=== PATIENT | male | born 1960 | race Caucasian/White ===

== ENCOUNTER 2019-05-13 10:30 | Outpatient (CLI) | payer OTHER, SELFPAY ==
--- NOTE | 2019-05-16 06:17 | SLEEP_ITS ---
Home Sleep Study DATE OF STUDY: 05/14/2019 HISTORY: The patient is 59 years of age. He has a BMI of 31.3 kg/m2. This patient had a prior sleep study almost 10 years ago documenting presence of obstructive sleep apnea. He was recommended to use CPAP therapy. The patient has been inconsistent and/or noncompliant with the use of CPAP. He did not have CPAP anymore as the insurance company declined further payment. The patient, however, has non-refreshing sleep and significant daytime hypersomnolence. He reports an [place] scale of 18/24 consistent with severe somnolence. The patient also has comorbid conditions of diabetes, hypertension, and hyperlipidemia. The patient underwent home sleep study using joiz ApneaLink Air device. Recordings were started at 12:08 a.m., ended at 7:40 a.m. The monitoring time was 6 hours and 16 minutes. RESPIRATORY EVENTS: The patient had 44 apneas with an apnea index of 6.1, obstructive event index was 1.2, central event index was 4.7, and mixed was 0.1. The patient also had 90 hypopneas with an index of 12.4. The respiratory events were more frequent in the supine sleep. The patient was in the supine sleep 75.4% of the time and during that time, the respiratory event index was 24.1 as compared to non-supine position, which was seen on 22.5% of the time. The event index was 0.6. PULSE RATE: The patient's average pulse rate was 75. The range was 65 to 103 beats per minute. OXYGEN SATURATION: The average saturation was 95%. Lowest saturation was 80%. In the last part of the study, generally in the early part of the morning, there appeared to be significant desaturation. This may suggest presence of REM related hypoxia. The patient was in supine sleep during that time. CONCLUSION: The study shows presence of at least moderate obstructive sleep apnea associated with episodes of desaturation. The patient also has moderate degree of central episodes. Given the patient's significant daytime symptomatology, particularly the daytime somnolence he is experiencing, it would be good idea to have this patient return for a full night CPAP titration study. The patient should also avoid driving or participate in any hazardous activity when sleepy. MATHIEU GONZALEZ MD BLOW MACHINE TENDER STARCH SPRAYING BLOW MACHINE TENDER STARCH SPRAYING D I MT: Edi
== END 2019-05-13 10:31 | disposition home or self-care (01) ==
PROVIDERS: PCP Family Medicine; Visit Provider Family Medicine
DX: G47.33 Obstructive sleep apnea (adult) (pediatric) (principal)
CPT/HCPCS: 95806

== ENCOUNTER 2019-10-02 09:40 | Outpatient (CLI) | payer OTHER, SELFPAY ==
[2019-10-02 09:50] LABS: Basophils Absolute Auto 0.04 K/mm3 (0.00-0.10); Basophils Percent Auto 0.6 % (0.0-1.0); Eosinophils Absolute Auto 0.22 K/mm3 (0.02-0.50); Eosinophils Percent Auto 3.5 % (1.0-6.0); Hematocrit 39.8 % (40.0-54.0); Hemoglobin 13.1 g/dL (14.0-18.0); Immature Granulocyte Absolute 0.02 K/mm3 (0.00-0.00); Immature Granulocyte Percent A 0.3 % (0.0-0.0); Lymphocytes Absolute Auto 1.85 K/mm3 (1.10-4.50); Lymphocytes Percent Auto 29.3 % (18.0-42.0); Mean Corpuscular HGB Conc 32.9 g/dL (32.0-36.0); Mean Corpuscular Hemoglobin 30.5 pg (27.0-31.0); Mean Corpuscular Volume 92.6 fL (78.0-102.0); Mean Platelet Volume 10.1 fl (8.7-11.0); Monocytes Absolute Auto 0.65 K/mm3 (0.10-0.90); Monocytes Percent Auto 10.3 % (2.0-11.0); Neutrophils Absolute Auto 3.5 K/mm3 (1.7-7.2); Platelet Count Result 247 K/mm3 (150-420); Red Cell Distribution Width 12.4 % (11.6-14.4); White Blood Count 6.3 K/mm3 (4.8-10.8)
[2019-10-02 10:00] LABS: Hemoglobin A1C 9.8 % (<5.7)
[2019-10-02 11:28] LABS: Alanine Aminotransferase 37 U/L (16-63); Alkaline Phosphatase 64 U/L (46-116); Anion Gap 13.2 mmol/L (7-16); Aspartate Amino Transferase 26 U/L (15-37); Bilirubin,Total 0.5 mg/dL (0.00-1.00); Blood Urea Nitrogen 16 mg/dL (7-18); Calcium 9.4 mg/dL (8.5-10.1); Carbon Dioxide 27 mmol/L (21-32); Chloride 102 mmol/L (98-108); Cholesterol 181 mg/dL (0-200); Estimated Glomerular Filt Rate > 60; Glucose 197 mg/dL (70-99); HDL Direct 50 mg/dL (40-60); LDL Cholesterol Calculated 84 mg/dL (<130); Osmolality Calculated 290 mOsm/kg (285-295); Potassium 5.2 mmol/L (3.5-5.1); Sodium 137 mmol/L (136-145); Total Protein 7.8 g/dL (6.4-8.2); Triglycerides 236 mg/dL (0-150)
[2019-10-02 11:31] LABS: Thyroid Stimulating Hormone Reflex 1.37 u/IU/mL (0.36-3.74)
== END 2019-10-02 09:41 | disposition home or self-care (01) ==
PROVIDERS: PCP Family Medicine; Visit Provider Family Medicine
DX: E11.9 Type 2 diabetes mellitus without complications (principal); I10 Essential (primary) hypertension
CPT/HCPCS: 36415; 80053; 80061; 83036; 84443; 85025

== ENCOUNTER → 2020-01-10 15:36 | Outpatient (CLI) | payer OTHER, SELFPAY ==
--- NOTE | ~2020-01-10 | MR_ITS ---
EXAMINATION: MR brain IAC wo/w con EXAM DATE: 01/10/2020 17:13 INDICATION: Study sudden onset hearing loss with headaches. TECHNIQUE: Multi-sequential, multiplanar MR images of the brain, brainstem, internal auditory canals were obtained without contrast. Whole brain sagittal T1, axial diffusion, gradient echo (T2*), T1, T 2, FLAIR sequences obtained. High resolution coronal 3-D FIESTA, coronal T1 FSE, axial T1 FSPGR of t he internal auditory canals. Patient was then injected with 19 cc Multihance contrast intravenously. Postcontrast axial and coronal T1 weighted whole brain, axial and coronal high resolution T1 IAC seq uences obtained. There is no prior study for comparison. FINDINGS: No evidence of mastoid or middle ear opacification. The 7th/8th cranial nerve complexes a re symmetric, normal in course and caliber. No cerebellopontine angle masses. Posterior fossa unrem arkable. There are no areas of restricted diffusion to suggest acute infarction. There is no acute hemorrhage seen on the T2*, a hemosiderin sensitive sequence. No intraparenchymal brain mass. The ventricles a re normal in size. There are no extra-axial collections. Flow voids are seen in the cerebral arteri es on the T2-weighted sequences consistent with their expected patency. The orbits are unremarkable. Soft tissue is unremarkable. There is mild paranasal sinus mucoperiosteal thickening IMPRESSION: 1. Unremarkable brain MRI examination. Reviewed, dictated and finalized at location A.
[2020-01-10 16:12] LABS: Estimated Glomerular Filt Rate > 60
== END ==
PROVIDERS: PCP Family Medicine; Visit Provider Otolaryngology
DX: H91.90 Unspecified hearing loss, unspecified ear (principal)
CPT/HCPCS: 70553; A9577

== ENCOUNTER 2020-02-01 01:44 | Outpatient (CLI) | payer OTHER, SELFPAY ==
[2020-02-01 22:13] LABS: SARS-CoV-2 RNA PCR Negative
== END 2020-02-01 01:45 | disposition home or self-care (01) ==
LOC: ANHCOVIDDT 01:45
PROVIDERS: Internal Medicine Critical Care Medicine; PCP Family Medicine; Visit Provider Internal Medicine Cardiovascular Disease
DX: Z01.812 Encounter for preprocedural laboratory examination (principal); Z20.828 Contact with and (suspected) exposure to other viral communicable diseases
CPT/HCPCS: 87635; C9803; U0003

== ENCOUNTER 2020-02-04 05:23 | Day surgery (SDC) | payer OTHER, SELFPAY ==
[2020-02-04] VITALS (31 sets, daily range): BP systolic 136–164; BP diastolic 77–101; PULSE 75–108; RESP 10–20; TEMP 36.2–37.2; O2SAT 94–100; BMI 30.6
--- NOTE | 2020-02-04 07:05 | SUR.PREOP ---
ARRIVES AMBULATORY TO [facility] W/ SIGNIFICANT OTHER AT SIDE FOR SCHEDULED C W/ DR. RENTERIA TODAY AT 0830. DENIES CP OR SOB ON ARRIVAL. GAIT STEADY. A&OX3. ORIENTED TO ROOM, PLAN OF CARE, PROCEDURE. QUESTIONS ANSWERED. OBTAINED COPIES OF LAB RESULTS FROM [facility] LAST WEEK. IV STARTED, VS OBTAINED, SKIN PREP COMPLETED, PULSES MARKED, CONSENT SIGNED. MONITOR SR. WILL MONITOR.
--- NOTE | 2020-02-04 08:17 | WPDMODSED ---
Moderate Sedation Note-Pt Data Patient Data Allergies Allergy/AdvReac Type Severity Reaction Status Date / Time No Known Allergies Allergy Mild Verified 12/25/19 17:44 Home Medications Medication Instructions Recorded Confirmed Type metoprolol tartrate 25 mg tablet 25 mg PO BID PRN #180 tablet 11/06/19 12/25/19 Rx dulaglutide 1.5 mg/0.5 mL 1.5 mg SUB-Q WEEKLY 90 Days #6.5 ml 12/26/19 Rx subcutaneous pen injector ezetimibe 10 mg-simvastatin 40 mg 1 tablet PO DAILY #90 tablet 12/26/19 Rx tablet lisinopril 20 mg tablet 20 mg PO DAILY #90 tablet 12/26/19 Rx metformin 1,000 mg tablet 1,000 mg PO BID #180 tablet 12/26/19 Rx sitagliptin 50 mg tablet 50 mg PO DAILY #90 tablet 12/26/19 Rx Current Medications: Active Medications Sodium Chloride (Normal Saline Iv) 500 mls @ 100 mls/hr IV CONT .Q5H SYL Sedation/Anesthesia: No previous sedation/anesthesia problems (including family history). [facility] Past Medical History Medical History DM2 (diabetes mellitus, type 2) Hyperlipidemia Hypertension Overweight Surgical History Surgical History History of hernia repair History of knee surgery History of shoulder surgery Family History Family History Mother Family history of type 2 diabetes mellitus Grandparent Colon cancer Father , Complication during heart valve replacement. No problems noted. Social History Social History Smoking status: Never smoker Tobacco type: cigarettes Mod Sed Physical Exam Physical Exam Pre Procedural Exam: Normal: Airway Hours since solid foods: 9 Hours since liquid intake: 9 Internal Medicine - PN: Obj Da Vital Signs Vital Signs: Vital Signs - 24 hr 02/04/20 07:34 Temperature 36.7 C Pulse Rate 86 Respiratory Rate 16 Blood Pressure 163/90 H Pulse Oximetry 97 Meds/Results Medications: Active Medications Generic Name Dose Route Start Last Admin Trade Name Freq PRN Reason Stop Dose Admin Sodium Chloride 500 mls @ 100 mls/hr 02/04/20 06:20 Normal Saline Iv IV CONT .Q5H [facility] ASA Classification/Sedation ASA Classification/Sedation Risks: Risks, benefits and alternatives explained and patient/family accepted plan for sedation. Patient re-evaluated immediately prior to sedation.
--- NOTE | 2020-02-04 08:18 | PM.IMHP ---
H&P: HPI History of Present Illness Date/Time: 02/04/20 08:18 Chief complaint: Abnormal Stress Test Narrative: Donte Gooden is a 59 year old male Hypertension, diabetes mellitus, dyslipidemia, ROCIO. Patient has been referred by Dr. Winter for coronary angiogram in the setting of chest discomfort and abnormal stress test. Patient has been experiencing generalized fatigue, lightheadedness. He also has occasional chest heaviness that happens with activity. He had a stress echocardiogram done on 01/15/2020. Baseline EKG was normal, exercise time 7.09 minutes, 10.1 Mets; exercise EKG consistent with ischemia; echocardiogram did not show wall motion abnormality. FOR[facility]LY [facility], [facility] Past Medical History Medical History (Updated 02/04/20 @ 08:21 by Babar Orosco MD) DM2 (diabetes mellitus, type 2) Hyperlipidemia Hypertension Overweight Surgical History Surgical History History of hernia repair History of knee surgery History of shoulder surgery Family History Family History Mother Family history of type 2 diabetes mellitus Grandparent Colon cancer Father , Complication during heart valve replacement. No problems noted. Social History Social History Smoking status: Never smoker Tobacco type: cigarettes Meds Home Medications and Allergies Home Medications Medication Instructions Recorded Confirmed Type metoprolol tartrate 25 mg tablet 25 mg PO BID PRN #180 tablet 11/06/19 12/25/19 Rx dulaglutide 1.5 mg/0.5 mL 1.5 mg SUB-Q WEEKLY 90 Days #6.5 ml 12/26/19 Rx subcutaneous pen injector ezetimibe 10 mg-simvastatin 40 mg 1 tablet PO DAILY #90 tablet 12/26/19 Rx tablet lisinopril 20 mg tablet 20 mg PO DAILY #90 tablet 12/26/19 Rx metformin 1,000 mg tablet 1,000 mg PO BID #180 tablet 12/26/19 Rx sitagliptin 50 mg tablet 50 mg PO DAILY #90 tablet 12/26/19 Rx Allergies Allergy/AdvReac Type Severity Reaction Status Date / Time No Known Allergies Allergy Mild Verified 12/25/19 17:44 Vital Signs Vital Signs - 24 hr 02/04/20 07:34 Temperature 36.7 C Pulse Rate 86 Respiratory Rate 16 Blood Pressure 163/90 H Pulse Oximetry 97 Exam Narrative: Exam Narrative: PHYSICAL EXAMINATION: GENERAL: Alert, oriented, no acute distress MENTAL STATUS: affect appropriate to mood EYES: Extraocular movements intact, no pallor EARS: External ears appear normal, hearing grossly normal NOSE: Normal and patent, no discharge MOUTH: Mucous membranes moist, tongue normal NECK: Supple, no JVD CHEST: Good respiratory effort, clear to auscultation HEART: Normal rate, regular rhythm, normal S1 and S2, no audible murmurs ABDOMEN: Soft, nontender NEUROLOGICAL: Alert, oriented, normal speech, no gross motor deficits MUSCULOSKELETAL: No major deformity, no amputation EXTREMITIES: No pedal edema, no clubbing, no cyanosis SKIN: no rash on the exposed area, no cyanosis PSYCHIATRIC: Normal mood, appropriate affect Assessment and Plan Assessment and plan (1) Chest pain: Code(s): R07.9 - Chest pain, unspecified Status: Acute Assessment and Plan: left heart catheterization plus minus intervention in the setting of chest pain and abnormal stress test.
--- NOTE | 2020-02-04 09:45 | SUR.PHASEII ---
BEGIN PHASE II RECOVERY AT THIS TIME. RETURNS TO [facility] 7 FROM CCL S/P LHC W/ PCI TO CIRC. 6FR SHEATH SUTURED INTO R. FEMORAL ARTERY PUNCTURE SITE. TO BLEEDING OR HEMATOMA TO SITE; R. GROIN SOFT, NONTENDER. DRESSING TO SITE C/D/I. ANGIOMAX GTT COMPLETE UPON RETURN AT 0945. SHEATH MAY BE PULLED AFTER 1145 THIS MORNING. R. PEDAL PULSE EASILY PALP. REPORTS SENSATION AND MOVEMENT R. FOOT WNL. VSS. IVF'S RUNNING ORDERED. REVIEWED BEDREST ACTIVITY RESTRICTIONS W/ PT AND S/O. WILL CONTINUE TO MONITOR CLOSELY.
--- NOTE | 2020-02-04 09:47 | WPDCARDPROC ---
Cardiac Cath Procedure Note Date of procedure:: 02/04/20 Performing physician:: Babar Orosco MD Procedure Procedure note:: CARDIAC CATHETERIZATION AND PERCUTANEOUS CORONARY INTERVENTION REPORT DATE OF PROCEDURE: 02/04/2020 INDICATION FOR PROCEDURE: Angina, abnormal stress test BRIEF CLINICAL HISTORY:59 year old male Hypertension, diabetes mellitus, dyslipidemia, ROCIO. Patient was referred by Dr. Winter for coronary angiogram in the setting of chest discomfort and abnormal stress test. Patient has been experiencing episodes of exertion chest discomfort, generalized fatigue, lightheadedness. He had a stress echocardiogram done on 01/15/2020. Baseline EKG was normal, exercise time 7.09 minutes, 10.1 Mets; exercise EKG consistent with ischemia; echocardiogram did not show wall motion abnormality. Benefits and risks of the procedure were discussed with the patient in depth, and informed consent was obtained prior to the procedure. Risks of the procedure include but are not limited to vascular complications including groin hematoma, retroperitoneal bleed, vessel perforation; periprocedural TN, cardiac arrhythmias, stroke, contrast induced nephropathy, and . After discussing all the benefits, risks and alternatives, patient was willing to proceed with the procedure. PROCEDURES PERFORMED: 1. Left heart catheterization- Selective left and right coronary angiogram; left ventriculogram and hemodynamic assessment 2. Percutaneous coronary intervention- a) balloon angioplasty and stenting of diffuse stenosis in the mid left circumflex using 2 everolimus eluting stents ( 3.25 x 33 mm, 3.25 x 12 mm) in an overlapping fashion; b) IFR of mid LAD 3. Moderate sedation-CPT code 36857 MODERATE SEDATION: Midazolam 1 mg; fentanyl 25 mcg. Start time 0829 , Stop time 0934 ; Total [id number] time 65 minutes; Elizabeth Brumfield RN was trained observer for moderate sedation. ACCESS SITE: Right common femoral artery PROCEDURE NOTE: After obtaining informed consent, patient was brought to catheterization lab and prepped and draped in a usual sterile manner. After local anesthesia with lidocaine, right common femoral artery access was taken with micropuncture needle followed by insertion of a 5 Panamanian sheath. Selective left and right coronary angiogram was performed using 5 Panamanian JL3.5 and JR4 catheters respectively. Orthogonal views were taken. Next, a 5 [place]amanian pigtail catheter was advanced in the LV cavity and was flushed with normal saline. LV pressure measurement was performed. After this, left ventriculogram was performed. The catheter was flushed again, and gradient across the aortic valve was measured on the pullback of the catheter. Patient tolerated procedure well without any immediate procedure related complications. FINDINGS: LEFT MAIN CORONARY: a medium caliber vessel, no significant focal stenosis. LEFT ANTERIOR DESCENDING ARTERY: The LAD is a medium caliber vessel in the proximal segment with mild diffuse irregularities; about 70% stenosis seen in the mid segment just distal to the origin of the major diagonal branch. The vessel tapers distally, and reaches the LV apex. The major diagonal branch is a medium to large sized vessel which bifurcates right after its origin. The superior bifurcating branch has poorly defined ostial lesion. LEFT CIRCUMFLEX ARTERY: The left circumflex is a medium tolarge caliber vessel, which essentially continues as large size OM branch. There is diffuse about 70-80% stenosis in the LCX starting from the lower part of the proximal segment and extending into the proximal part of the OM branch. RIGHT CORONARY ARTERY: The right coronary artery is a large caliber vessel with the sudden taper in the proximal segment after the origin of the vessel. There is mild diffuse narrowing in the proximal segment. The vessel gives rise to medium-sized PDA and PLV branch without significant focal stenosis. LEFT VENTRICULOGRAM
--- NOTE | 2020-02-04 12:35 | SUR.PHASEII ---
MANUAL SHEATH PULL R. GROIN SITE BY THIS RN PER PROTOCOL. FIRM, STEADY PRESSURE TO SITE UNTIL HEMOSTASIS ACHIEVED.
--- NOTE | 2020-02-04 13:05 | SUR.PHASEII ---
HEMOSTASIS ACHIEVED TO R. GROIN PUNCTURE SITE AFTER 30 MINUTES MANUAL PRESSURE HOLD. TOLERATED WELL. SITE DRESSED W/ STAT SEAL AND TEGADERM DRESSING. SITE SOFT, NONTENDER. NO HEMATOMA OR BLEEDING NOTED. BEDREST X 6 HOURS UNTIL 190 DISCUSSED. AGAIN REVIEWED ALL BEDREST ACTIVITY RESTRICTIONS FOR HEALING AND SAFETY. VOICED UNDERSTANDING. WILL CONTINUE TO MONITOR CLOSELY.
--- NOTE | 2020-02-04 14:05 | SUR.PHASEII ---
END PHASE II RECOVERY. ADMITTED TO EXTENDED RECOVERY AT THIS TIME. TO REMAIN IN [facility] 7 EXTENDED RECOVERY PT. AFTER OUTPATIENT LHC W/ PCI. NO NEW CHANGES. IVF'S CONTINUE. BEDREST CONTINUES UNTIL 1904. SEE PCS FOR FURTHER DOCUMENTATION.
--- NOTE | 2020-02-04 14:06 | ADMGEN ---
This patient, Donte Gooden, was admitted to EXTENDED RECOVERY POST OUTPATIENT [facility] W/ PCI TO [facility] RO[facility] 7. REMAINS IN [facility]PER[facility] ROOM 7 POST PHASE 2 RECOVERY. BEDREST POST HEMOSTASIS R. GROIN PUNCTURE SITE X6 HOURS COMPLETE AT 1905. IVF'S RUNNING ORDERED. R. GROIN SOFT, NONTENDER. NO BLEEDING OR HEMATOMA NOTED. TEGADERM AND STAT SEAL DRESSING C/D/I. R. PEDAL PULSE EASILY PALP. VOICES NO C/O. . Patient/family oriented to hospital policies and general routines including ID bracelet, bed and alarms, visiting hours, pain management, procedures, bathroom and other care routines, personal items, smoking policy, room service/diet, and visiting hours. Information on how to activate the Rapid Response Team has been discussed. Patient/Family are encouraged to report perceived risks to care and to ask questions if they do not understand what they are told or what they should do.
--- NOTE | 2020-02-04 15:50 | PC.NURSE ---
CONDITION UPDATE CALLED TO STEPHANIE NIELSEN NP. ORDERS AND MED RECONCILIATION REQUESTED FOR EXTENDED RECOVERY.
--- NOTE | 2020-02-04 15:53 | ECG_ITS ---
Measurements Intervals [place] Rate: 92 P: 39 WA: 155 QRS: 10 QRSD: 84 T: 13 QT: 348 QTc: 432 Interpretive Statements SINUS RHYTHM EARLY PRECORDIAL R/S TRANSITION VOLTAGE CRITERIA FOR LVH CONSIDER INFERIOR INFARCT, AGE INDETERMINATE ABNORMAL ECG Electronically Signed On 02-04-2020 16:27:23 SENIOR NET ENGINEER by Rudy Kraft D.O.
[2020-02-04 16:11] LABS: Glucose Point of Care 253 (65-105)
[2020-02-04] MEDS: lisinopriL 20 MG TABLET PO (16:43)
[2020-02-04] MEDS: METOPROLOL TARTRATE 25 MG TABLET PO (16:43)
[2020-02-04] MEDS: SODIUM CHLORIDE 0.9% IV 1,000 ML 125 ML IV CONT (16:44)
--- NOTE | 2020-02-04 17:30 | PC.NURSE ---
REPORT CALLED TO MINH Castro RN IN IMU. PT. IS TO CONTINUE EXTENDED RECOVERY STAY IN IMU 202. PT. AND SIGNIFICANT OTHER AWARE.
--- NOTE | 2020-02-04 17:50 | PC.NURSE ---
TRANSFERRED TO IMU 202 VIA BED TO CONTINUE EXTENDED RECOVERY STAY S/P LHC W/ PCI. NO NEW CHANGES NOTED. VSS. NO CHANGE IN R. GROIN STATUS. IVF'S CONTINUE. BEDREST CONTINUES UNTIL 1904.
--- NOTE | 2020-02-04 17:56 | PC.NURSE ---
This patient, Donte Gooden, was received from [[facility]] on 02/04/20 at 1756. REPORT RECEIVED FROM VIJAYA HENDRIX. Patient/family oriented to unit policies and routines
[2020-02-04 19:40] LABS: Glucose Point of Care 130 (65-105)
[2020-02-04] MEDS: TICAGRELOR 90 MG TABLET PO (20:33)
[2020-02-05] VITALS (8 sets, daily range): BP systolic 137–156; BP diastolic 93–94; PULSE 74–101; RESP 16–18; TEMP 36–36.6; O2SAT 99; BMI 30.5
[2020-02-05 08:28] LABS: Glucose Point of Care 193 (65-105)
[2020-02-05] MEDS: ACETAMINOPHEN 325 MG TABLET 650 MG PO (08:30)
[2020-02-05] MEDS: ATORVASTATIN 40 MG TABLET 80 MG PO (08:31)
[2020-02-05] MEDS: lisinopriL 20 MG TABLET PO (08:32)
[2020-02-05] MEDS: TICAGRELOR 90 MG TABLET PO (08:32)
[2020-02-05] MEDS: METOPROLOL TARTRATE 25 MG TABLET PO (08:33)
[2020-02-05] MEDS: ASPIRIN 81 MG ENTERIC TABLET PO (08:33)
--- NOTE | 2020-02-05 10:45 | PM.DS ---
DS: Admitting Diagnosis Admitting Diagnosis Admitting Diagnosis: Abnormal Stress Test DS: Discharge Diagnosis Discharge Diagnosis (1) Chest pain: Code(s): R07.9 - Chest pain, unspecified Status: Acute Assessment and Plan: Cardiac catheterization 01/04/2020: a) about 70% stenosis mid LAD just distal to the origin of the major diagonal branch ( abnormal IFR measured at 0.62); b) diffuse 70-80% stenosis mid LCX 2. Preserved LV systolic function, ejection fraction 60-70%; LVEDP 8 mmHg. 3. PCI- a) balloon angioplasty and stenting of diffuse stenosis in the mid left circumflex using 2 everolimus eluting stents ( 3.25 x 33 mm, 3.25 x 12 mm) in an overlapping fashion; b) IFR of mid LAD RECOMMENDATIONS: Dual antiplatelet therapy with aspirin and ticagrelor, in addition to other medications including high-intensity statin treatment. Significant stenosis in the mid LAD at the origin of the major diagonal branch with abnormal IFR. He will undergo staged intervention in the mid LAD. DS: Summary Hospital Course Reason for hospitalization: Abnormal stress test Hospital Course: 59-year-old male with chest discomfort and abnormal stress test brought to the cardiac catheterization lab by Dr Orosco on 02/04/2020. See above for findings and recommendations. He was monitored overnight. He no longer has any chest burning or discomfort. Denied shortness of breath or lightheadedness. Right groin site without swelling or bleeding. No femoral bruit. Distal pulses intact. No arrhythmias. He was discharged home in stable and pain-free condition. Status at Discharge Functional status at discharge: independent ambulation Overall status at discharge: patient is back to baseline Time Spent with Patient Time attestation: Total time spent providing and/or coordinating discharge services: 20 minutes room discussing medications, activity restrictions, diabetic medications and staged procedure. 10 minutes to do discharge summary. 10 minutes to do discharge orders. Total time spent on discharge 40 minutes. Time spent: Greater than 30 minutes Exam Narrative: Exam Narrative: PHYSICAL EXAMINATION: GENERAL: Alert, oriented, no acute distress MENTAL STATUS: affect appropriate to mood EYES: Extraocular movements intact, no pallor EARS: External ears appear normal, hearing grossly normal NOSE: Normal and patent, no discharge MOUTH: Mucous membranes moist, tongue normal NECK: Supple, no JVD CHEST: Good respiratory effort, clear to auscultation HEART: Normal rate, regular rhythm, normal S1 and S2, no audible murmurs ABDOMEN: Soft, nontender. Bowel sounds positive x4 quadrants. NEUROLOGICAL: Alert, oriented, normal speech, no gross motor deficits MUSCULOSKELETAL: No major deformity, no amputation EXTREMITIES: No pedal edema, no clubbing, no cyanosis. Right groin site without swelling or bleeding. Stat seal intact. No femoral bruit. Distal pulses intact. SKIN: no rash on the exposed area, no cyanosis PSYCHIATRIC: Normal mood, appropriate affect DS: Data Data Completed and Pending Labs on day of discharge: Labs from last 24 hours 02/05/20 02/04/20 02/04/20 08:08 19:31 16:06 POC Capillary Glucose 193 H 130 H 253 H Discharge Plan Discharge Patient Disposition: Home, Self-Care Discharge Instructions: ACTIVITY: No driving for 24 hours. No lifting, pushing or pulling more than 10 pounds for 1 week. No strenuous exercise or activity. May start gentle walking program in 1 week. May shower but no tub baths or swimming pool for 1 week. Avoid commercial hot tubs. 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 No strenuous exercise or activity. DO NOT STOP YOUR MEDICATIONS! ONLY YOUR MATERIALS HANDLING COORDINATOR CAN STOP THE FOLLOWING MEDICATIONS: Aspirin Brilinta Brandon
== END 2020-02-05 12:14 | disposition home or self-care (01) ==
LOC: ANHCATHLAB 06:49 → ANHCPC 15:30 → ANHIMU 18:08
PROVIDERS: PCP Family Medicine; Visit Provider Internal Medicine Cardiovascular Disease
PROC: 4A023N7 Measurement of Cardiac Sampling and Pressure, Left Heart, Percutaneous Approach (ICD-10-PCS; CPT 93452; principal; 2020-02-04 08:30)
PROC: 4A033BC Measurement of Arterial Pressure, Coronary, Percutaneous Approach (ICD-10-PCS; CPT 93571; 2020-02-04 08:30)
PROC: (CPT 92928; 2020-02-04 08:30)
DX: I25.10 Atherosclerotic heart disease of native coronary artery without angina pectoris (principal); R94.39 Abnormal result of other cardiovascular function study; R07.9 Chest pain, unspecified; I10 Essential (primary) hypertension; E11.9 Type 2 diabetes mellitus without complications; E78.5 Hyperlipidemia, unspecified; G47.33 Obstructive sleep apnea (adult) (pediatric); Z79.84 Long term (current) use of oral hypoglycemic drugs
CPT/HCPCS: 93005; 93458; 93571; A9270; C1725; C1769; C1874; C1887; C1894; C9600; J0583; J1644; J2250; J3010; J7030; J7040

== ENCOUNTER 2020-03-13 02:12 | Outpatient (CLI) | payer OTHER, SELFPAY ==
[2020-03-13 18:45] LABS: SARS-CoV-2 RNA PCR Negative
== END 2020-03-13 02:13 | disposition home or self-care (01) ==
LOC: ANHCOVIDDT 02:13
PROVIDERS: PCP Family Medicine; Visit Provider Internal Medicine Critical Care Medicine
DX: Z20.828 Contact with and (suspected) exposure to other viral communicable diseases (principal)
CPT/HCPCS: 87635; C9803; U0003

== ENCOUNTER 2020-03-13 19:34 | Emergency (ER) | payer OTHER, SELFPAY ==
--- NOTE | ~2020-03-13 | CT_ITS ---
EXAMINATION: CT abdomen pelvis w con INDICATION: Abdominal pain and distention TECHNIQUE: Computed tomographic images of the abdomen and pelvis were obtained after the administrati on of 100 cc of Omnipaque 350 intravenous contrast. The dose-length product (DLP) was 1041.16 mGy-cm. Automated exposure control and iterative reconstruction technique were employed. COMPARISON: None available FINDINGS: The lung bases are clear. The heart size is normal. There is circumferential wall thickenin g of the distal esophagus. Punctate calcifications in an otherwise normal spleen likely represent hea led granulomatous disease. The liver, pancreas, gallbladder, and adrenal glands are normal. The kidne ys are unremarkable. There is a circumaortic left renal vein. No pathologically enlarged abdominal or pelvic lymph nodes are identified. There is no free intraperitoneal gas or evidence of bowel obstruc tion. The appendix is normal. There is mild lumbar spondylosis. There are changes of umbilical hernia repair. IMPRESSION: 1. No CT correlate for the patient's symptoms. Reviewed, dictated and finalized at location A. FIRST ASSIST
[2020-03-13 19:38] VITALS: BP 136/91; PULSE 98; RESP 17; TEMP 36; O2SAT 98
--- NOTE | 2020-03-13 19:46 | ED.ABDPAIN ---
HPI - Abdominal Pain General Chief Complaint: Abdominal Pain Stated Complaint: Abd Pain/Vomiting Time Seen by Provider: 03/13/20 19:46 Source: patient Mode of arrival: ambulatory Limitations: no limitations History of Present Illness HPI narrative: Patient is a 59-year-old male with a history of hypertension, hyperlipidemia who presents for evaluation of abdominal pain. Patient with cramping abdominal pain over the past 16 hours, intermittent in nature, pain located throughout the entire abdomen. Patient states he has had this happen to him 4 times previously is usually associated with eating spicy or fatty foods. He denies focal right upper quadrant pain. He denies fever, chills, nausea or vomiting. He denies diarrhea. He reports his abdomen feels mildly distended. Patient denies any weight loss or history of cancer. Patient's prompted him to be evaluated given the recurrence of this. Patient states his pain is very minimal at the moment. Pt denies back pain. Related Data Home Medications Medication Instructions Recorded Confirmed aspirin 81 mg PO DAILY 02/04/20 02/04/20 metoprolol tartrate 25 mg PO BID 02/04/20 02/04/20 Allergies Allergy/AdvReac Type Severity Reaction Status Date / Time No Known Allergies Allergy Mild Verified 03/13/20 19:38 Review of Systems Review of Systems: Narrative: CONSTITUTIONAL: Denies fever, chills, or sweats. EYES: Denies visual changes, redness, or discharge. ENT: Denies rhinorrhea, congestion, sore throat, or otalgia. CARDIOVASCULAR: Denies chest pain, palpitations, or edema. RESPIRATORY: Denies cough or dyspnea. GASTROINTESTINAL: Reports abdominal cramping without nausea or vomiting GENITOURINARY: Denies dysuria or hematuria. SKIN: Denies rash or itching. MUSCULOSKELETAL: Denies back pain, joint pain, or myalgia. NEUROLOGIC: Denies headache, numbness, or weakness. COUNTS INCLUDE 234 BEDS AT THE [facility] Past Medical History Medical History (Updated 03/13/20 @ 21:50 by Toma Weiner MD) DM2 (diabetes mellitus, type 2) Hyperlipidemia Hypertension Overweight Surgical History Surgical History History of hernia repair History of knee surgery History of shoulder surgery Family History Family History Mother Family history of type 2 diabetes mellitus Grandparent Colon cancer Father , Complication during heart valve replacement. No problems noted. Social History Social History Smoking status: Never smoker Tobacco type: cigarettes Drinks per week: 6 Substance use type: does not use Gender identity (if verbalized by the patient): Male Spiritual care concerns: No Exam Narrative: Exam Narrative: GENERAL: Awake, alert, conversant HEAD: Normocephalic, atraumatic. EYES: PERRLA and EOMI. ENT: Nares clear, no rhinorrhea or epistaxis. Mucous membranes moist. NECK: Supple. CHEST: No respiratory distress, breathing even and non labored HEART: Regular rate, sinus rhythm ABDOMEN:Non distended, no focal tenderness, no rebound, non rigid, no guarding EXTREMITIES: Normal range of motion. No edema. SKIN: Warm, dry, no rash. NEURO:No focal deficits. Alert and oriented x3 Course Vital Signs Vital signs: Vital Signs Temperature 36.0 C L 03/13/20 19:38 Pulse Rate 98 03/13/20 19:38 Respiratory Rate 17 03/13/20 19:38 Blood Pressure 136/91 H 03/13/20 19:38 Pulse Oximetry 98 03/13/20 19:38 Temperature 36.0 C L 03/13/20 19:38 Pulse Rate 98 03/13/20 19:38 Respiratory Rate 17 03/13/20 19:38 Blood Pressure 136/91 H 03/13/20 19:38 Pulse Oximetry 98 03/13/20 19:38 MDM - Abdominal Pain MDM Narrative Medical decision making narrative: Patient's abdomen is soft without significant pain or signs of surgical abdomen on serial exams. Lab and imaging evaluations are reviewed and
[2020-03-13] MEDS: SODIUM CHLORIDE 0.9% IV 500 ML 999 ML IV CONT (20:32)
[2020-03-13] MEDS: DICYCLOMINE HCL INJ 20 MG/2 ML VIAL IM (20:32)
[2020-03-13] MEDS: METOCLOPRAMIDE HCL INJ 10 MG/2 ML VIAL IV PUSH (20:32)
[2020-03-13 20:44] LABS: Basophils Percent Auto 0.3 % (0.2-1.2); Eosinophils Absolute Auto 0.5 K/mm3 (0-0.3); Eosinophils Percent Auto 3.8 % (0-4.4); Hematocrit 45.1 % (42.0-52.0); Hemoglobin 14.9 g/dL (14.0-18.0); Immature Granulocyte Absolute 0.09 K/mm3 (0.00-0.031); Immature Granulocyte Percent A 0.7 % (0-0.5); Lymphocytes Absolute Auto 2.39 K/mm3 (0.9-3.2); Lymphocytes Percent Auto 18.7 % (18.3-44.2); Mean Corpuscular Hemoglobin 30.1 pg (26-34); Mean Corpuscular Volume 91.1 fl (80-100); Mean Platelet Volume 10.7 fl (7.4-10.4); Monocytes Percent Auto 7.8 % (2.6-8.5); Neutrophils Absolute Auto 8.8 K/mm3 (1.3-6.7); Neutrophils Percent Auto 68.7 % (45.5-73.1); Platelet Count Result 274 k/mm3 (150-375); Red Blood Count 4.95 M/mm3 (4.6-6.20); Red Cell Distribution Width 12.3 % (11.5-14.5); White Blood Count 12.8 K/mm3 (4.5-10.0)
[2020-03-13 20:46] LABS: Add Urine Microscopic? NO; Appearance Urine Clear (Clear); Bilirubin Urine Negative (Negative); Blood Urine Negative (Negative); Color Urine Yellow (Yellow); Glucose Urine UA Negative (Negative); Ketones Urine Negative (Negative); Leukocyte Esterase Ur Negative LEU/UL (Negative); Nitrate Urine Negative (Negative); Protein Urine Negative (Negative); Specific Grav Ur 1.021 (1.001-1.035); Urobilinogen Urine Negative mg/dL (<2.0)
[2020-03-13 20:59] LABS: Alanine Aminotransferase 31 U/L (4-50); Albumin Level 4.4 g/dL (3.5-5.1); Alkaline Phosphatase 90 U/L (38-126); Anion Gap 11 mmol/L (8-16); Aspartate Amino Transferase 37 U/L (17-59); Bilirubin,Total 1.2 mg/dL (0.2-1.3); Blood Urea Nitrogen 16 mg/dL (9-20); Calcium 9.6 mg/dL (8.4-10.2); Carbon Dioxide 26 mmol/L (22-30); Chloride 99 mmol/L (98-107); Estimated CRCL calculation 79 ml/min; Estimated Glomerular Filt Rate > 60; Glucose 226 mg/dL (75-110); Lipase 98 U/L (23-300); Potassium 4.2 mmol/L (3.4-5.0); Sodium 136 mmol/L (137-145)
[2020-03-13 22:08] VITALS: BP 134/91; PULSE 93; RESP 18; TEMP 36.6; O2SAT 98
== END 2020-03-13 22:09 | disposition home or self-care (01) ==
PROVIDERS: Emergency Medicine; Emergency Provider Emergency Medicine; PCP Family Medicine
DX: R10.9 Unspecified abdominal pain (principal); E11.9 Type 2 diabetes mellitus without complications; E78.5 Hyperlipidemia, unspecified; I10 Essential (primary) hypertension
CPT/HCPCS: 36415; 74177; 80053; 81003; 83690; 85025; 96361; 96372; 96374; 99284; J0500; J2765; J7040; Q9967

== ENCOUNTER 2020-03-16 07:52 | Outpatient (CLI) | payer OTHER, SELFPAY ==
--- NOTE | 2020-04-29 14:36 | WPDSLEEPSTUD ---
Sleep Study Date of Study: 03/16/20 Ordering Provider: Dimitrios Winter MD; primary care is Dr. Kvng Mccarty MD Interpreting Physician: Chante Carbajal MD Sleep Study Type: CPAP Titration Height: 1.75 m Weight: 91.626 kg Body Mass Index: 29.8 Neck Circumference: 43.18 cm [place]: 20 Reason for Sleep Study Extreme fatigue; has a diagnosis of sleep apnea but does not use CPAP; 05/13/2019 [facility] HST AHI 18.2, mainly obstructive events, lowest saturation was 80%, supine index was 24.1. Sleep History Donte Gooden is a 60 year old man with coronary artery disease, stents were placed February 04, 2020 and February 20, 2020. He has hypertension, diabetes and depression. There is a history of obstructive sleep apnea initially 10 years ago, however he has not been using CPAP. On 05/13/2019 he had a home sleep test with an [facility] showing AHI 18.2, mainly obstructive events, lowest saturation was 80%, Supine index was 24.1. He frequently awakens from sleep feeling short of breath. He frequently awakens at night with heartburn, belching or coughing. He occasionally snores, occasionally is loud enough that others complain about it. He occasionally has trouble sleeping with a cold. He frequently wakes up gasping for breath at night, frequently has breathing problems at night observed by others. He occasionally sweats excessively at night. He frequently notices his heart pounding or beating irregularly at night. He frequently falls asleep during the day, frequently involuntarily and constantly while driving. He occasionally falls asleep while exerting physical effort. He frequently has loss of muscle tone with strong emotion. He frequently has daytime difficulties due to his excessive sleepiness. He works as an control equipment electrician. He frequently feels paralyzed on waking or falling asleep. He occasionally has vivid dreamlike scenes upon awakening or falling asleep. He does not feel afraid to go to sleep. He occasionally has nightmares. He occasionally remembers his dreams. He constantly has racing thoughts. He occasionally feels sad or depressed. He frequently feels anxious. He frequently has muscular tension. He occasionally notices parts of his body jerking and occasionally kicks at night. He occasionally has crawling and aching feelings in his legs at night and occasionally has leg pain during the night. He does not have morning jaw pain. He rarely grinds his teeth at night. He frequently is bothered by pain during the day, occasionally is awakened by pain at night. He frequently wakes up feeling stiff in the morning with sore achy muscles and pain in the neck and spine. He has headaches, fatigue, sexual problems, memory problems, concentration difficulties, depression and dizziness. He takes and acids regularly. He never wakes up feeling refreshed. Normal bedtime is between 9 and 10:00 p.m. falling asleep instantly but waking 3-5 times at night. When he wakes up he may stay awake for 1-2 hours. While awake during the night, he frequently urinates. He has many thought on his mind while awake at night. He wakes in the morning between 3:00 and 5:00 a.m.. He estimates 5 hours of sleep at night. His excessive sleepiness impacts his social life because he does not feel like going out, concerned that he may get too sleepy. when he wakes up he stays in bed for a couple of hours. He does not take naps. A short nap is not refreshing. He is drowsy in the morning for 3 hours or longer. Habits: Never smoked tobacco. Diet Coke 2 per day. No alcohol or recreational drugs. [facility] Past Medical History Medical History (Updated 04/29/20 @ 15:04 by Chante Carbajal MD) Depression DM2 (diabetes mellitus, type 2) Hyperlipidemia Hypertension Overweight Seasonal allergies Surgical History Surgical History H/O heart artery stent 02/2020 History of hernia repair History of knee surge
[2020-04-29 15:22] VITALS: BMI 29.8
== END 2020-03-16 07:53 | disposition home or self-care (01) ==
LOC: ANHCSM 07:52
PROVIDERS: PCP Family Medicine; Visit Provider Internal Medicine Cardiovascular Disease
DX: G47.33 Obstructive sleep apnea (adult) (pediatric) (principal); G47.10 Hypersomnia, unspecified; F32.9 Major depressive disorder, single episode, unspecified; E11.9 Type 2 diabetes mellitus without complications; I10 Essential (primary) hypertension; E66.3 Overweight; Z68.29 Body mass index [BMI] 29.0-29.9, adult; J30.2 Other seasonal allergic rhinitis; Z79.82 Long term (current) use of aspirin; Z79.4 Long term (current) use of insulin; Z79.899 Other long term (current) drug therapy
CPT/HCPCS: 95811

== ENCOUNTER 2020-06-17 07:30 | Outpatient (RCR) | payer OTHER, SELFPAY ==
[2020-05-28 12:18] VITALS: PULSE 82
[2020-06-01 11:38] LABS: Glucose Point of Care 233 (65-105)
[2020-06-15 08:33] LABS: Glucose Point of Care 254 (65-105)
--- NOTE | 2020-06-22 07:53 | PCCPR ---
Discharging-Basilio called and left voicemail stating he was not going to be able to come in the morning, he is going back to work. Called pt back to confirm if he was planning to discharge or just needed another class time. Pt states his work schedule varies so much that he is going to have to discharge. Spoke with patient about the medical educator as pts blood sugars have been very elevated. Pt agrees to us sending his information to the medical educator/coper hand for an appointment.
== END 2020-06-22 08:12 | disposition home or self-care (01) ==
LOC: ANHCPREHAB 07:30
PROVIDERS: PCP Family Medicine; Visit Provider Nurse Practitioner Adult Health
DX: Z95.5 Presence of coronary angioplasty implant and graft (principal)
CPT/HCPCS: 82948; 93798

== ENCOUNTER 2020-07-02 15:45 | Outpatient (RCR) | payer OTHER, SELFPAY | END 2020-07-02 17:24 | disposition home or self-care (01) | LOC: ANHDMC 15:45 | PROVIDERS: PCP Family Medicine; Visit Provider Nurse Practitioner Adult Health | DX: E11.59 Type 2 diabetes mellitus with other circulatory complications (principal); I25.10 Atherosclerotic heart disease of native coronary artery without angina pectoris; Z71.89 Other specified counseling | CPT/HCPCS: G0108 ==

== ENCOUNTER 2020-07-10 07:45 | Outpatient (CLI) | payer OTHER, SELFPAY ==
--- NOTE | ~2020-07-10 | US_ITS ---
EXAMINATION: US retroperitoneal duplex ltd DATE: 07/10/2020 08:35 INDICATION: Hypertension. TECHNIQUE: Multiple grayscale, color Doppler, and pulsed Doppler images of the kidneys and renal marty july were obtained. COMPARISON: CT abdomen and pelvis 03/13/2020 FINDINGS: The aorta peak systolic velocity is 94 cm/s. There are 2 right renal arteries. The first right renal artery peak systolic velocity is 104 cm/s in the mid artery and 73 cm/s in the distal artery. The sec ond right renal artery peak systolic velocity is 52 cm/s in the mid artery and 54 cm/s in the distal artery. The left renal artery peak systolic velocity is 80 cm/s in the proximal segment, 79 cm/s in t he mid segment, and 60 cm/s in the distal segment. IMPRESSION: 1. No Doppler evidence of renal artery stenosis. Note that the CT from 03/13/2020 similarly demonstr ates no significant renal artery stenosis. Reviewed, dictated and finalized at location A. IMPRESSION: 1. No Doppler evidence of renal artery stenosis. Note that the CT from 020 similarly demonstrates no significant renal artery stenosis.
== END 2020-07-10 07:46 | disposition home or self-care (01) ==
LOC: ANHIMG 07:47
PROVIDERS: PCP Family Medicine; Visit Provider Nurse Practitioner Adult Health
DX: E11.59 Type 2 diabetes mellitus with other circulatory complications (principal); I10 Essential (primary) hypertension
CPT/HCPCS: 93976

== ENCOUNTER 2022-03-25 09:51 | Outpatient (CLI) | payer OTHER, SELFPAY ==
--- NOTE | ~2022-03-25 | XR_ITS ---
AP and oblique views of the left ribs, and PA and lateral chest x-rays Clinical History: Pain Findings: No rib fracture is seen. Osseous alignment is anatomic. Blunting of the right costophrenic angles noted. Left lung clear. Cardiomediastinal contour is within normal limits. Soft tissues are un remarkable. Impression: No rib fracture is seen. Small right pleural effusion. Reviewed, dictated and finalized at location . [employer] TEACHER Impression: No rib fracture is seen. Small right pleural effusion.
== END 2022-03-25 09:52 | disposition home or self-care (01) ==
PROVIDERS: PCP Internal Medicine; Visit Provider Internal Medicine
DX: R05.9 Cough, unspecified (principal); M54.6 Pain in thoracic spine; J90 Pleural effusion, not elsewhere classified
CPT/HCPCS: 71046; 71100

== ENCOUNTER 2022-07-01 10:57 | Outpatient (CLI) | payer OTHER, SELFPAY ==
--- NOTE | ~2022-07-01 | US_ITS ---
Procedure: Duplex Doppler examination of the bilateral carotids. Indication: Left carotid bruit Technique: Real time, color-flow and pulse wave Doppler examination of the bilateral carotids was performed. Findings: Sims scale ultrasonography of the right neck demonstrated no significant plaque. There was demonstrat ion of normal color-flow and Doppler waveforms within the right common, internal and external carotid arteries. The peak systolic velocities in the right common, internal and external carotid arteries w ere demonstrated to be 108 cm/sec, 55 cm/sec and 104 cm/sec respectively. The right ICA/CCA ratio was 0.5.The proximal right internal carotid artery demonstrates 0% stenosis relative to the normal dista l artery lumen diameter. Sims scale sonography of the left neck demonstrated small calcified plaque at the left carotid bulb. There was demonstration of normal color-flow and wave forms within the left common, internal and exte rnal carotid arteries. The peak systolic velocities in the left common, internal and external carotid arteries were demonstrated to be 102cm/sec, 62 cm/sec and 124 cm/sec respectively. The left ICA/CCA ratio was 0.6. The proximal left internal carotid artery demonstrates 0% stenosis relative to the nor mal distal artery lumen diameter. There was antegrade flow demonstrated in the bilateral vertebral arteries. Impression: No hemodynamically significant stenosis of the bilateral internal carotid arteries. Antegrade flow in the bilateral vertebral arteries. Note: The methodology used is an indirect measurement validated against a direct method (such as the NASCET criteria) that compares diameters at the stenosis to the distal ICA. Reviewed, dictated and finalized at location . Impression: No hemodynamically significant stenosis of the bilateral internal carotid arter ies. Antegrade flow in the bilateral vertebral arteries. Note: The methodology used is an indirect measurement validated against a direct meth od (such as the NASCET criteria) that compares diameters at the stenosis to the distal ICA.
== END 2022-07-01 10:58 | disposition home or self-care (01) ==
PROVIDERS: PCP Internal Medicine; Visit Provider Internal Medicine Cardiovascular Disease
DX: R09.89 Other specified symptoms and signs involving the circulatory and respiratory systems (principal)
CPT/HCPCS: 93880

== ENCOUNTER 2022-07-08 11:07 | Outpatient (CLI) | payer OTHER, SELFPAY ==
--- NOTE | ~2022-07-08 | XR_ITS ---
EXAMINATION: XR chest 2V DATE: 07/08/2022 11:31 INDICATION: 2 weeks of cough and 2 days of fever TECHNIQUE: PA and lateral views of the chest were obtained. COMPARISON: Chest radiograph dated 03/25/[address] dated 03/13/2020 FINDINGS: Chronic atelectasis/scarring at the right lung base resulting in chronic blunting at the posterior aguilera lcus and costophrenic angle. No new airspace opacities, pulmonary edema, pleural effusion or pneumoth orax. The cardiomediastinal silhouette is normal. Mild thoracic kyphosis with chronic mild anterior w edging of couple mid thoracic vertebral bodies. IMPRESSION: 1. Unchanged chronic atelectasis/scarring along the right lung base. No acute cardiopulmonary disease . Reviewed, dictated and finalized at location A. IMPRESSION: 1. Unchanged chronic atelectasis/scarring along the right lung base. No acute c ardiopulmonary disease.
[2022-07-08 11:42] LABS: Influenza Control Valid (Valid)
== END 2022-07-08 11:08 | disposition home or self-care (01) ==
LOC: CHSLAB 11:10
PROVIDERS: PCP Family Medicine; Visit Provider Nurse Practitioner
DX: R50.9 Fever, unspecified (principal); R91.8 Other nonspecific abnormal finding of lung field
CPT/HCPCS: 71046; 87804

== ENCOUNTER 2022-12-24 07:26 | Emergency (ER) | payer OTHER, SELFPAY ==
[2022-12-24 07:31] VITALS: BP 111/84; PULSE 105; RESP 16; O2SAT 98
[2022-12-24 08:00] LABS: Basophils Percent Auto 0.2 % (0.2-1.2); Eosinophils Absolute Auto 0.2 K/mm3 (0-0.3); Eosinophils Percent Auto 1.7 % (0-4.4); Hematocrit 53.8 % (42.0-52.0); Hemoglobin 17.5 g/dL (14.0-18.0); Immature Granulocyte Absolute 0.07 K/mm3 (0.00-0.031); Immature Granulocyte Percent A 0.8 % (0-0.5); Lymphocytes Absolute Auto 2.01 K/mm3 (0.9-3.2); Lymphocytes Percent Auto 22.3 % (18.3-44.2); Mean Corpuscular HGB Conc 32.5 g/dl (32-36); Mean Corpuscular Volume 92.3 fl (80-100); Mean Platelet Volume 10.1 fl (7.4-10.4); Monocytes Absolute Auto 1.2 K/mm3 (0.1-0.6); Monocytes Percent Auto 13.5 % (2.6-8.5); Neutrophils Absolute Auto 5.6 K/mm3 (1.3-6.7); Neutrophils Percent Auto 61.5 % (45.5-73.1); Platelet Count Result 300 k/mm3 (150-375); Red Blood Count 5.83 M/mm3 (4.6-6.20); Red Cell Distribution Width 12.9 % (11.5-14.5)
[2022-12-24 08:01] LABS: Appearance Urine Clear (Clear); Bilirubin Urine Negative (Negative); Blood Urine Negative (Negative); Color Urine Yellow (Yellow); Glucose Urine UA 3+ mg/dL (Negative); Ketones Urine 2+ mg/dL (Negative); Leukocyte Esterase Ur Negative LEU/UL (Negative); Nitrate Urine Negative (Negative); Protein Urine Negative (Negative); Urobilinogen Urine 0.2 mg/dL (<2.0)
[2022-12-24 08:09] LABS: Alanine Aminotransferase 18 U/L (6-50); Albumin Level 4.1 g/dL (3.5-5.1); Alkaline Phosphatase 105 U/L (38-126); Anion Gap 13 mmol/L (8-16); Aspartate Amino Transferase 21 U/L (17-59); Blood Urea Nitrogen 17 mg/dL (9-20); Calcium 8.7 mg/dL (8.4-10.2); Carbon Dioxide 21 mmol/L (22-30); Chloride 101 mmol/L (98-107); Estimated CRCL calculation 61 ml/min; Estimated Glomerular Filt Rate 56; Glucose 154 mg/dL (65-110); Lipase 70 U/L (23-300); Potassium 4.1 mmol/L (3.4-5.0); Sodium 135 mmol/L (137-145)
[2022-12-24] MEDS: SODIUM CHLORIDE 0.9% IV 1,000 ML 999 ML IV CONT ×2 (08:20→09:33)
[2022-12-24] MEDS: ONDANSETRON INJ 4 MG/2 ML VIAL IV PUSH (08:21)
[2022-12-24 08:36] LABS: Specific Grav Ur 1.043 (1.001-1.035)
[2022-12-24 08:37] LABS: Add Urine Microscopic? NO
--- NOTE | 2022-12-24 08:47 | ED.GENADULT ---
HPI - General Adult General Chief complaint: Nausea/Vomiting/Diarrhea Stated complaint: Vomiting/Diarrhea x3 Days Time Seen by Provider: 12/24/22 07:31 History of Present Illness HPI narrative: 62-year-old male with history of insulin-dependent diabetes presented to ED for evaluation of persistent nausea vomiting diarrhea. Patient did begin Ozempic multiple weeks ago and has been slowly increasing his doses. Patient states that when he first try the Ozempic he did have some stomach irritation. Patient had his most recent dose and this was his first dose of 2 mg. Patient started developing nausea vomiting diarrhea yesterday. Patient denies any associate abdominal pain. Related Data Home Medications Medication Instructions Recorded Confirmed aspirin 81 mg tablet,delayed 81 mg PO DAILY 02/04/20 05/28/20 release Allergies Allergy/AdvReac Type Severity Reaction Status Date / Time No Known Allergies Allergy Mild Verified 05/06/20 14:03 Review of Systems Review of Systems: All systems reviewed & are unremarkable except as noted in HPI and below PMFSH Past Medical History Medical History (Updated 12/24/22 @ 10:01 by Johnathon Gray MD) Coronary artery disease Depression DM2 (diabetes mellitus, type 2) Hyperlipidemia Hypertension Overweight Seasonal allergies Surgical History Surgical History H/O heart artery stent 02/2020 History of hernia repair History of knee surgery History of shoulder surgery Family History Family History (Updated 05/28/20 @ 12:03 by Rabia Kirkpatrick RN) Mother Family history of type 2 diabetes mellitus Coronary artery disease Hypertension Grandparent Colon cancer Father , Complication during heart valve replacement. Hypertension Sibling Hypertension Social History Social History Smoking status: Never smoker Tobacco type: cigarettes Drinks per week: 6 Substance use type: does not use Living arrangements: alone Gender identity (if verbalized by the patient): Male Spiritual care concerns: No Exam Narrative: APPEARANCE: Well appearing, no pain, no distress, well-nourished. HEAD: normocephalic, atraumatic. EYES: PERRLA/EOMI, conjunctivae clear. NOSE: Normal no drainage NECK: Supple. No adenopathy, no masses. RESPIRATORY: Airway patent, respirations nonlabored. Clear to auscultation bilaterally, no rales, rhonchi, wheezing. CARDIOVASCULAR: Regular rate and rhythm without murmurs rubs or gallops. ABDOMINAL: Soft, nontender, nondistended, normal bowel sounds MUSCULOSKELETAL: Moves all extremities. Strength/ROM intact, No edema, No calf tenderness. NEURO: Alert. Cranial nerves II through XII intact. Grossly intact SKIN: Warm, dry. Normal Color Course Course Emergency Course: 62-year-old male presented ED for evaluation of nausea vomiting diarrhea after increasing his Ozempic. Patient's blood sugars are stable in the ED. Patient is afebrile with no leukocytosis and a stable hemoglobin. Patient has no anion gap normal kidney function and otherwise normal CMP. Patient did have ketones in his urine and was passing some glucose. Patient was treated with 2 L of IV fluid and IV Zofran. Patient does feel improved with treatment. Patient was advised to hold on the Ozempic and to follow a clear liquid diet for the next few days. All question concerns were addressed. Patient did tolerate a p.o. challenge in the ED. Vital Signs Vital signs: Vital Signs Pulse Rate 105 H 12/24/22 07:31 Respiratory Rate 16 12/24/22 07:31 Blood Pressure 111/84 12/24/22 07:31 Pulse Oximetry 98 12/24/22 07:31 Oxygen Delivery Room Air 12/24/22 07:31 Pulse Rate 105 H 12/24/22 07:31 Respiratory Rate 16 12/24/22 07:31 Blood Pressure 111/84 12/24/22 07:31 Pulse Oximetry 98 12/24/22 07:31 Oxygen D
[2022-12-24 08:50] LABS: Atypical Lymphocytes Present; Platelet Estimate Adequate (Adequate); Schistocytes None Seen (NORMAL)
[2022-12-24 10:01] LABS: Influenza A QL RT-PCR Negative (Negative); Influenza B QL RT-PCR Negative (Negative); RSV RNA, RT-PCR Negative (Negative); SARS-CoV-2 RNA PCR Negative (Negative)
== END 2022-12-24 10:35 | disposition home or self-care (01) ==
PROVIDERS: Emergency Provider Emergency Medicine; PCP Family Medicine
DX: R11.2 Nausea with vomiting, unspecified (principal); T50.995A Adverse effect of other drugs, medicaments and biological substances, initial encounter; Z20.822 Contact with and (suspected) exposure to COVID-19; I25.10 Atherosclerotic heart disease of native coronary artery without angina pectoris; I10 Essential (primary) hypertension; E11.9 Type 2 diabetes mellitus without complications; E78.5 Hyperlipidemia, unspecified; E66.3 Overweight; Z68.30 Body mass index [BMI] 30.0-30.9, adult; Z95.5 Presence of coronary angioplasty implant and graft; Z79.82 Long term (current) use of aspirin; Z79.84 Long term (current) use of oral hypoglycemic drugs
CPT/HCPCS: 36415; 80053; 81003; 83690; 85025; 87637; 96361; 96374; 99284; J2405; J7030

== ENCOUNTER 2023-11-14 16:55 | Outpatient (CLI) | payer OTHER, SELFPAY ==
--- NOTE | ~2023-11-14 | XR_ITS ---
EXAMINATION: XR chest 2V Exam Date/Time: 11/14/2023 17:09 CDT HISTORY: PT C/O SLIGHT COUGH Comparison: 07/08/2022. RESULT: Lines, tubes, and devices: Coronary stent. Lungs and pleura: Subsegmental right lower lobe airspace disease. Mild chronic right pleural bluntin g. Cardiomediastinal silhouette: Stable. Other: No acute osseous or upper abdominal finding. IMPRESSION: Subsegmental right lower lobe atelectasis/consolidation. Mild right costophrenic angle blunting likel y representing chronic pleural scarring. Reviewed, dictated and finalized at location K. IMPRESSION: Subsegmental right lower lobe atelectasis/consolidation. Mild right costophreni c angle blunting likely representing chronic pleural scarring.
== END 2023-11-14 16:56 | disposition home or self-care (01) ==
LOC: ANHIMG 17:00
PROVIDERS: PCP Family Medicine; Visit Provider Internal Medicine Cardiovascular Disease
DX: R93.89 Abnormal findings on diagnostic imaging of other specified body structures (principal); R91.8 Other nonspecific abnormal finding of lung field
CPT/HCPCS: 71046